=== PATIENT | female | born 1970 | race Caucasian/White ===

== ENCOUNTER → 2016-09-10 | Outpatient (CLI) | payer OTHER ==
[~2016-09-10] MED LIST: CYCLOBENZAPRINE10 M1 PO; LYRICA 100 MG100 MG PO; MELOXICAM15 MG PO; MORPHINE SULFAT30 M3 PO; OXYBUTYNIN5 MG PO; OXYCODONE AND A1 TA5 PO
[2016-09-10 13:21] LABS: HEMOGLOBIN 8.2 g/dL (12.2-16.2); LYMPH # 0.7 K/mm3 (0.7-4.5); LYMPH % 27.8 % (10-50.0)
[2016-09-10 13:44] LABS: BUN 19 mg/dL (7-18)
[2016-09-10 13:59] LABS: GFR (ESTIMATED) 37 ML/MIN (59-)
[2016-09-10 18:20] LABS: NEUTROPHILS 64 % (42-76)
== END ==
LOC: LAB 12:40
PROVIDERS: Obstetrics & Gynecology Gynecologic Oncology
DX: C53.9 Malignant neoplasm of cervix uteri, unspecified (principal); C51.9 Malignant neoplasm of vulva, unspecified

== ENCOUNTER → 2016-10-07 | Outpatient (CLI) | payer OTHER ==
[2016-10-07 15:30] LABS: HEMOGLOBIN 10.6 g/dL (12.2-16.2); LYMPH # 1.1 K/mm3 (0.7-4.5); LYMPH % 11.7 % (10-50.0)
[2016-10-07 16:26] LABS: BUN 15 mg/dL (7-18); GFR (ESTIMATED) 32 ML/MIN (59-)
== END ==
LOC: LAB 15:09
PROVIDERS: Obstetrics & Gynecology Gynecologic Oncology
DX: C53.9 Malignant neoplasm of cervix uteri, unspecified (principal); C51.9 Malignant neoplasm of vulva, unspecified

== ENCOUNTER → 2016-10-14 | Outpatient (CLI) | payer OTHER ==
[2016-10-14 17:57] LABS: HEMOGLOBIN 9.9 g/dL (12.2-16.2); LYMPH # 1.4 K/mm3 (0.7-4.5); LYMPH % 12.7 % (10-50.0)
[2016-10-14 18:33] LABS: BUN 22 mg/dL (7-18)
[2016-10-14 19:03] LABS: GFR (ESTIMATED) 28 ML/MIN (59-)
== END ==
LOC: LAB 17:35
PROVIDERS: Obstetrics & Gynecology Gynecologic Oncology
DX: C53.9 Malignant neoplasm of cervix uteri, unspecified (principal); C51.9 Malignant neoplasm of vulva, unspecified

== ENCOUNTER 2016-11-28 02:04 | Inpatient (IN) | payer OTHER ==
[2016-11-28] VITALS (9 sets, daily range): BP systolic 90–135; BP diastolic 59–88
[~2016-11-28] VITALS: Ht 170.2 cm; Wt 72.6 kg
--- NOTE | 2016-11-28 02:39 | Emergency Room Report ---
History of Present Illness Time Seen by [id number] Presenting Problem in Triage Pt arrived:Wheelchair Presenting Problem:altered mental status, disorietation, fall yesterday am. 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 N Clinical Suspician of Infection? Y Mental Status: 2 - Mildly Altered Sepsis Risk:Possible Sepsis Risk Have you (or family members/close friends) recently traveled outside the [place]? N If Yes, where/when: Have you had exposure to infectious disease within the past month? TB? Other? Specify: Source patient, RN notes reviewed, family, RN/MD Exam Limitations no limitations Comment This is a 46-year-old lady arriving to the emergency room by POV together with her spouse, for evaluation of confusion, subjective fever, body aches, and generalized weakness. She was diagnosed with uterine cancer in January 2016, and she has been receiving oncology treatment at [facility] in [place], by Dr. Delgadillo. advised that she has metastases to her lungs and bones. denies any recent travel or exposure to sick contacts. She has to urostomy tubes, which changing dressing regularly. He has noticed over the past couple of days that the dressing he sustained with a yellowish tint. ALLERGIES Coded Allergies: No Known Allergies (11/28/16) Home Medications Reported Medications OXYCODONE HCL/ACETAMINOPHEN (Oxycodone-Acetaminophen 10-325) 10 MG PO TID PRN PAIN #90 TAB Pregabalin (Lyrica 100Mg) 100 MG PO TID #90 OXYBUTYNIN CHLORIDE (Oxybutynin 5MG Tab) 5 MG PO BID Meloxicam (Meloxicam 15MG) 15 MG PO DAILY #30 Cyclobenzaprine Hcl 10 MG PO NIGHTLY #30 MORPHINE SULFATE SR/ER (Morphine Sulfate ER) 30 MG PO Q12 #60 History Medical History General CAD? No Angina: No [place]: No Hypertension? No Hyperlipidemia? No CHF? No DVT? No PE? No COPD? No Asthma? No Anemia? No GERD? Yes Gastric ulcers? No GI Bleed? No Hernia? No Thyroid Problems? No Hypothyroidism? No CVA? No Seizures? No Diabetes? No Renal Insuffiency? No End Stage Renal Disease? No UTI? No Stones? No BPH? No GB Disease: No Nephritic Syndrome? No Asplenia? No Hepatitis? No Sickle Cell Disease? No Arthritis? Yes Migraines? No Cataracts? No Glaucoma? No MRSA? No HIV? No TB? No Anxiety? No Depression? No Cancer? Yes Site: BONE CANCER;LUNG;CERVIX More? 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 LMP N/A Family History Family Hx Diabetes Yes CAD Yes Hypertension Yes Hyperlipidemia Yes Cancer No TB No Social History Smoking Hx Smoker: Current Every Day Smoker Tobacco: Yes Type Cigarettes Packs/day < 1 Pack Alcohol Alcohol: No Review of Systems All Other Systems Reviewed and Negative Constitutional see HPI, chills, diaphoresis, fever, malaise, weakness Psychiatric/Neurological weakness, other (disoriented) Physical Exam Vital Signs Vital Signs Date Time Temp Pulse Resp B/P Pulse O2 O2 Flow FiO2 Ox Delivery Rate 11/28 0435 76 20 116/95 95 2 11/28 0236 89 11/28 0213 99.7 112 20 117/76 89 General Appearance normal appearance, WD/WN, mild distress, lethargic Eye Exam - bilateral eye normal exam, bilateral eye PERRL, bilateral eye EOMI Neck normal inspection, non-tender, supple, full range of motion Respiratory Status Yes: trachea midline, chest symmetrical, non tender chest. No: respiratory distress. Lung Sounds bilateral: normal breath sounds, lungs clear. 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 No Comment 04:45am-case discussed with Dr. Prince, covering for Dr. Torres, covering for Dr. Crawley, advised of patient's presentation, findings, vital signs, ED course. Dr. Prince agreeable with admission, as well as management so far. Plan is to continue IV hydration, as well as IV antibiotics. We'll also get a noncontrast CT of the abdomen and pelvis. Care transferred to Dr. Prince at this time. I will write bridge temporary admission orders, per hospital protocol. Upon patient's arrival to the floor the unit nurse will contact Dr. Hodges in order to obtain a full inpatient admission orders. Results/Orders Laboratory Tests 11/28/16 0310: Urine Color DARK YELLOW, Urine Appearance Turbid, Urine pH 6.0, Ur Specific [place] 1.025, Urine Protein 2+ H, Urine Ketones NEGATIVE, Urine Blood 3+ H, Urine Nitrate POSITIVE H, Urine Bilirubin NEGATIVE, Urine Urobilinogen 1.0, Ur Leukocyte Esterase 2+ H, Urine Glucose NEGATIVE 11/28/16 0243: ABG pH 7.45, ABG pCO2 (Temp Corrct 37.4, ABG pO2 (Temp Correct 61.3 L, ABG HCO3 25.1, ABG Total CO2 26.3, ABG O2 Sat (Calculated) 90.8, ABG Base Excess 1.0, Viral Test Y, Blood Gas Comments R/R 11/28/16 0230: Lactic Acid 0.9 11/28/16 0230: Sodium 134 L, Potassium 4.2, Chloride 101, Carbon Dioxide 25, BUN 31 H, Creatinine 2.7 H, Estimated Creat Clear 28 L, Estimated GFR (MDRD) 19 *L, Glucose 106, Calcium 8.2 L, Total Bilirubin 0.3, AST 55 H, ALT 19, Alkaline Phosphatase 84, Creatine Kinase 534 H, CK and CKMB Interp 9.0 *H, Troponin I < 0.02, Total Protein 7.2, Albumin 2.8 L, Globulin 4.4 H, Albumin/Globulin Ratio 0.6 L, Amylase 29, Lipase 83, TSH 98.19 H, Free T4 Index 0.4 L, Thyroxine (T4 ) 0.8 L, T3 Uptake 24 L, WBC 6.7, RBC 3.28 L, Hgb 10.1 L, Hct 31.3 L, MCV 95.6, RDW 17.5, Plt Count 149, MPV 6.6 L, Gran % 88.6 H, Gran # 5.9, Total Counted 100, Lymphocytes % 7.3 L, Monocytes % 2.6, Eosinophils % 1.3, Basophils % 0.3, Neutrophils 93 H, Lymphocytes (Manual) 6 L, Lymphocytes # 0.5 L, Monocytes (Manual) 1 L, Monocytes # 0.2, Eosinophils # 0.1, Basophils # 0.0, Platelet Estimate NORMAL, Hypochromasia 1+, Anisocytosis 1+, PUBS MCHC 32.2, MCH 30.8 11/28/16 0210: Amylase Cancelled, Lipase Cancelled, TSH Cancelled, Free T4 Index Cancelled, Thyroxine (T4) Cancelled, T3 Uptake Cancelled Current Medication Orders Sig/Faith Start time Last Medication Dose Route Stop Time Status Admin Sodium Chloride 1,000 ML .Q1H1M 11/28 0445 DC 11/28 IV 11/28 0545 0445 Sodium Chloride 10 ML PRN PRN 11/28 0445 AC IV 11/29 0432 Sodium Chloride 1,000 ML .STK-MED ONE 11/28 0442 DC IV Ceftriaxone Sodium 1 GM ONCE ONE 11/28 0330 DC 11/28 Sodium Chloride 50 ML IV 11/28 0359 0330 Sodium Chloride 1,000 ML .Q1H1M 11/28 0330 DC / IV 11/28 0430 0329 Sodium Chloride 10 ML PRN PRN 11/28 0330 AC IV 11/29 0324 Ceftriaxone Sodium 0 .STK-MED ONE 11/28 0326 DC IV Sodium Chloride 50 ML .STK-MED ONE 11/28 0326 DC IV Sodium Chloride 1,000 ML .STK-MED ONE 11/28 0325 DC IV Sodium Chloride 10 ML PRN PRN 11/28 0215 AC IV 11/29 0209 Orders Procedure Date/time Status Decision to admit 11/28 0303 Active DIFFERENTIAL-WBC 11/28 0230 Complete ARTERIAL BLOOD GAS REQUEST 11/[address] HEAD REQ 11/28 220 Active ELECTROCARDIOGRAM REQUEST 11/28 210 Active CULTURE, URINE 11/28 210 Active URINALYSIS/COMPLETE 11/28 210 Complete ELECTROCARDIOGRAM REQUEST 11/28 209 Active IV SALINE LOCK 11/28 209 Active OXYGEN PER NURSE 11/28 209 Active ROUNDSMAN 05/08 0210 Active TROPONIN I 11/28 209 Complete THYROID PANEL 2 (WITH TSH) 11/28 209 Complete LIPASE 11/28 209 Complete CPK 11/28 209 Complete COMPLETE METABOLIC PANEL 11/28 209 Complete CKMB 11/28 209 Complete CBC WITH AUTO DIFF 11/28 209 Complete AMYLASE 11/28 209 Complete CULTURE, BLOOD 11/28 0209 Active LACTIC ACID 11/28 020 Complete 12 LEAD EKG-ADRYL (INITIAL) 11/28 UNK Active XRAY/CT/US XRAY/CT/US CT head CT interpretation by reviewed by me (noncontrast), discussed w/radiologist CT Results see virtual radiology report Departure Departure Time of Disposition 0443 Disposition Still a Patient Clinical Impression Primary Impression: Change in mental status Qualifiers: Altered mental status type: unspecified Qualified Code: R41.82 - Altered mental status, unspecified Secondary Impressions: Acute on chronic renal failure Qualifiers: Acute renal failure type: unspecified Chronic kidney disease stage: unspecified stage Qualified Code: N17.9 - Acute kidney failure, unspecified Metastatic cancer Urinary tract infection Qualifiers: Urinary tract infection type: acute cystitis Hematuria presence: without hematuria Qualified Code: N30.00 - Acute cystitis without hematuria Uterine cancer Qualifiers: Malignant neoplasm of uterus location: unspecified site of uterus Qualified Code: C55 - Malignant neoplasm of uterus, part unspecified Condition STABLE ED Critical Care Critical Care Yes Time spent 30-74 min Vital system(s) involved: Central Nervous System I was present at bedside for Coordinating pt's care, During my initial exam, Reviewing lab results, Reviewing old records, Discussing pt condition, For re- examinations, Examining radiographs If Critical Care minutes are documented, the time involved in the performance of seperately reportable procedures was not counted toward critical care time documented. I directly delivered medical care to this critically ill and/or injured patient. Timely evaluation and treatment was necessary to address the significant organ system(s) dysfunction present in this patient. at 0514
[2016-11-28 02:44] LABS: HEMOGLOBIN 10.1 g/dL (12.2-16.2); LYMPH # 0.5 K/mm3 (0.7-4.5); LYMPH % 7.3 % (10-50.0)
[2016-11-28 02:44] LABS: ARTERIAL PO2 61.3 MMHG (80-100); ARTERIAL TCO2 26.3 MMOL/L (23-27)
[2016-11-28 02:45] LABS: ALLEN'S TEST Y; OXYGEN R/A
[2016-11-28 03:16] LABS: BUN 31 mg/dL (7-18); FREE THYROXIN INDEX 0.4 ug/dl (5.93-13.13)
[2016-11-28 03:21] LABS: GFR (ESTIMATED) 19 ML/MIN (59-)
[2016-11-28 03:31] LABS: URINE BILIRUBIN - DIPSTICK NEGATIVE (NEG); URINE BLOOD 3+ (NEG)
[2016-11-28 03:44] LABS: NEUTROPHILS 93 % (42-76)
--- OUTSIDE RECORDS SUMMARY | 2016-11-28 04:52 | External Medical Summary Rpt ---
Author Author [employer], [employer] Organization [employer] Address Unknown Phone Unavailable
--- OUTSIDE RECORDS SUMMARY | 2016-11-28 04:52 | External Medical Summary Rpt ---
Author Author , Organization [employer] Address Unknown Phone Unavailable Purpose Continuity of Care Document - through 2016
--- OUTSIDE RECORDS SUMMARY | 2016-11-28 04:52 | External Medical Summary Rpt ---
Author Author [employer] Organization [employer] Address Unknown Phone Unavailable Purpose Continuity of Care Document - through 2016
--- NOTE | 2016-11-28 05:14 | RADIOLOGY REPORT PS360 ---
CHEST-PORTABLE HISTORY: Fever, pain, history of lung cancer fever, pain ORDERING PHYSICIAN: Piter Kaplan MD PATIENT AGE: 46 years COMPARISON: None available FINDINGS: There are low lung volumes. The cardiac vascular structures are unremarkable. There is an 18 x 11 mm nodular opacity in the left midlung indeterminate. Increased markings are present in the right lower lung zone suspicious for underlying infiltrate. There is a mottled area of decreased density involving the proximal humerus laterally at the region of the greater tuberosity possibly due to a lytic lesion. IMPRESSION: 1. Left midlung nodule atelectatic 18 x [address] 2. Patchy infiltrate in the right lower lobe. 3. Lytic lesion of the proximal humerus on the right. Recommend right shoulder films
--- NOTE | 2016-11-28 05:16 | RADIOLOGY REPORT PS360 ---
CT HEAD W/O CONTRAST HISTORY: Altered mental status, metastatic cervical cancer to the lung and bone, confusion, disorientation AMS ORDERING PHYSICIAN: Piter Kaplan MD PATIENT AGE: 46 years COMPARISON: None TECHNIQUE: Axial images obtained without contrast. Brain and bone windows reviewed. FINDINGS: No midline shift, mass effect, intracranial hemorrhage, hydrocephalus, or extra-axial fluid collection is evident. The calvarium has an unremarkable appearance. No mastoid effusion. Mild mucosal thickening left maxillary sinus IMPRESSION: Negative CT head without contrast. No acute finding.
--- NOTE | 2016-11-28 07:46 | HISTORY AND PHYSICAL REPORT ---
Demographics: Admit date: 11/28/16 Chief complaint: Weakness PRIMARY DIAGNOSIS: pneumonia/UTI Allergies: Coded Allergies: No Known Allergies (11/28/16) History of present illness: History of present illness: 46-year-old female with metastatic uterine cancer presented to the emergency department early this morning after being weak and sleeping most of the day. Her felt like she just wasn't acting like herself and brought her to the emergency department. In the emergency department the patient was found to have urinary tract infection and chest x-ray has also shown right-sided pneumonia. Patient admits to fairly new onset of cough with intermittent episodes of shortness of breath. She assumed she just had a cold. She denies fevers or chills. Patient has bilateral urostomy tubes. Her creatinine was elevated on presentation but we do not have recent labs for comparison. Patient was admitted on Rocephin and azithromycin. As stated above she has metastatic uterine cancer with metastases to the lungs and bone. Patient is undergone both chemotherapy and radiation. Past medical history: Family HX Family Hx Insignificant No Diabetes Yes CAD Yes Hypertension Yes Hyperlipidemia Yes Cancer No TB No Immunization HX DT/Tetanus Unknown Pneumonia Refuses TB Test in last year No General CAD? No Angina: No [place]: No Hypertension? No Hyperlipidemia? No CHF? No DVT? No PE? No COPD? No Asthma? No Anemia? No GERD? Yes Gastric ulcers? No GI Bleed? No Hernia? No Thyroid Problems? No Hypothyroidism? No CVA? No Seizures? No Diabetes? No Renal Insuffiency? No UTI? No Stones? No BPH? No GB Disease: No Nephritic Syndrome? No Asplenia? No Hepatitis? No Sickle Cell Disease? No Arthritis? Yes Migraines? No Cataracts? No Glaucoma? No MRSA? No HIV? No TB? No Anxiety? No Depression? No Cancer? Yes Site: BONE CANCER;LUNG;CERVIX More? Yes Additional hx: SPINA BIFIDA RADIATION FOR BONE CANCER CHEMO Past Surgical HX Previous Surgery?Y BACK X2 D & C C SECTION TUBAL SKIN CANCER OVARY CYST KIDNEY STENTS NEPHROSTOMY Current home meds: Reported Medications OXYCODONE HCL/ACETAMINOPHEN (Oxycodone-Acetaminophen 10-325) 10 MG PO TID PRN PAIN #90 TAB Pregabalin (Lyrica 100Mg) 100 MG PO TID #90 OXYBUTYNIN CHLORIDE (Oxybutynin 5MG Tab) 5 MG PO BID Meloxicam (Meloxicam 15MG) 15 MG PO DAILY #30 Cyclobenzaprine Hcl 10 MG PO NIGHTLY #30 MORPHINE SULFATE SR/ER (Morphine Sulfate ER) 30 MG PO Q12 #60 Social Hx: Smoking HX Tobacco Yes Type Cigarettes Packs/day 1 1/2 - 2 PACKS Alcohol Alcohol: No Hx of Drug Use Drug Use? No Patien't marital status is Patient's support system is fair Review of systems: Constitutional weakness. Respiratory see HPI. Cardiovascular no symptoms reported Gastrointestinal/Abdominal nausea, poor appetite Genitourinary no symptoms reported. Musculoskeletal other. Neurological Yes: weakness. Exam: Lab data for last 24 hours: Laboratory Tests 11/28/16 0310: Urine Color DARK YELLOW, Urine Appearance Turbid, Urine pH 6.0, Ur Specific [place] 1.025, Urine Protein 2+ H, Urine Ketones NEGATIVE, Urine Blood 3+ H, Urine Nitrate POSITIVE H, Urine Bilirubin NEGATIVE, Urine Urobilinogen 1.0, Ur Leukocyte Esterase 2+ H, Urine Glucose NEGATIVE 11/28/16 0243: ABG pH 7.45, ABG pCO2 (Temp Corrct 37.4, ABG pO2 (Temp Correct 61.3 L, ABG HCO3 25.1, ABG Total CO2 26.3, ABG O2 Sat (Calculated) 90.8, ABG Base Excess 1.0, Viral Test Y, Blood Gas Comments R/R 11/28/16 0230: Lactic Acid 0.9 11/28/16 0230: Sodium 134 L, Potassium 4.2, Chloride 101, Carbon Dioxide 25, BUN 31 H, Creatinine 2.7 H, Estimated Creat Clear 28 L, Estimated GFR (MDRD) 19 *L, Glucose 106, Calcium 8.2 L, Total Bilirubin 0.3, AST 55 H, ALT 19, Alkaline Phosphatase 84, Creatine Kinase 534 H, CK and CKMB Interp 9.0 *H, Troponin I < 0.02, Total Protein 7.2, Albumin 2.8 L, Globulin 4.4 H, Albumin/Globulin Ratio 0.6 L, Amylase 29, Lipase 83, TSH 98.19 H, Free T4 Index 0.4 L, Thyroxine (T4 ) 0.8 L, T3 Uptake 24 L, WBC 6.7, RBC 3.28 L, Hgb 10.1 L, Hct 31.3 L, MCV 95.6, RDW 17.5, Plt Count 149, MPV 6.6 L, Gran % 88.6 H, Gran # 5.9, Total Counted 100, Lymphocytes % 7.3 L, Monocytes % 2.6, Eosinophils % 1.3, Basophils % 0.3, Neutrophils 93 H, Lymphocytes (Manual) 6 L, Lymphocytes # 0.5 L, Monocytes (Manual) 1 L, Monocytes # 0.2, Eosinophils # 0.1, Basophils # 0.0, Platelet Estimate NORMAL, Hypochromasia 1+, Anisocytosis 1+, PUBS MCHC 32.2, MCH 30.8 Microbiology 11/28 309 URINE CATH: Urine Culture - CAN Cancelled: DUPLICATE ORDER 11/28 309 URINE CC: Urine Culture - RECD 11/28 229 BLOOD: Anaerobic Blood Culture - RECD 11/28 229 BLOOD: Aerobic Blood Culture - RECD 11/28 229 BLOOD: Anaerobic Blood Culture - RECD 11/28 229 BLOOD: Aerobic Blood Culture - RECD Admission vital signs: 1ST Vital Signs Result Date Time Pulse Ox 89 11/28 212 B/P 117/76 11/283 Temp 99.7 11/283 Pulse 112 11/28 0213 Resp 20 11/28 212 O2 Flow Rate 2 11/28 0435 O2 Delivery ROOM AIR 11/28 0518 Additional information: Patient is awake and sitting up in a chair. She appears weak. Pupils are reactive to light. Oropharynx reveals tacky mucous membranes. Neck is without lymphadenopathy. Lungs have bilateral rhonchi LEFT greater than RIGHT. Heart has a regular rate and rhythm. Abdomen is soft. Nephrostomy tubes are in place posteriorly in the back. Extremities are warm to the touch and she moves all her extremities. Neurologically there are no deficits. Plan: Problem List 1. Urinary tract infection 2. Acute on chronic renal failure 3. Change in mental status 4. Hypothyroidism 5. Community acquired pneumonia Plan: 1. Rocephin and azithromycin for pneumonia and Rocephin to cover her urinary tract infection 2. IV fluids and follow BUN/creatinine and electrolytes 3. Start levothyroxine
--- NOTE | 2016-11-28 09:41 | RADIOLOGY REPORT PS360 ---
CT ABD PELVIS W/O CONTRAST CLINICAL INDICATION: FEVER,B/L NEPHROSTOMIES, ovarian cancer ORDERING PHYSICIAN: Vick Torres MD PATIENT AGE: 46 years COMPARISON: 08/20/2016 TECHNIQUE: Axial images obtained with sagittal and coronal reformats. PROCEDURE: Oral Contrast: None IV Contrast: None . FINDINGS: There is groundglass opacity in both lower lobes which could be due to pulmonary edema or pneumonitis. An ill-defined 9 mm nodules present in the right lung base not significantly changed. There are some central parenchymal opacities in the right lung base medially and may be related to peribronchial inflammatory/infectious changes. Gas is present in the distal esophagus with mild thickening of the distal esophagus nonspecific. The liver has an unremarkable appearance. Gallbladder is somewhat distended. No radio opaque stones are evident. Spleen is enlarged at 16 cm. The adrenal glands and pancreas are unremarkable. There are bilateral percutaneous nephrostomy tubes present. A small amount of gas is present within the left renal collecting system. Calcification is present in the mid and upper pole collecting system of the right kidney and may be due to developing staghorn calculi. No hydronephrosis evident. There is diffuse moderate amount of feces and gas in the colon most prominent in the ascending and transverse colon with mild distention of the colon measuring up to 8 cm in transverse dimension. There is some mild thickening of the descending and sigmoid colon. Colitis is considered. No obvious abscess or free air. Is mild thickening of the presacral fat and stranding of the perirectal fat. This was present previously and not significant change. There is decompression of the urinary bladder with thickening of the urinary bladder wall. Small amount fluid is present in the pelvis. No change 1 cm anterolisthesis of L3 on L4. A lytic lesion is once again noted involving the posterior infra aspect of the L2 vertebral body similar to the previous exam. There is an old fracture of the right eighth rib anteriorly and laterally IMPRESSION: 1. There has been insertion of bilateral nephrostomy tubes with decompression of the renal collecting system. Calcification is developing in the right kidney and may be due to developing staghorn calculus. Small amount of gas is present in the left kidney possibly due to the tube insertion. 2. Decompression of the urinary bladder with thickening of the wall urinary bladder. 3. Persistent thickening of the descending and sigmoid colon and rectum consistent with colitis/proctocolitis with persistent stranding of the perirectal and presacral fat. 4. Constipation 5. No change lytic lesion of L2
[2016-11-28] MEDS ORDERED: CITALOPRAM HYDR10 MG PO (13:32)
[2016-11-28] MEDS ORDERED: DITROPAN 5MG TAB5 MG PO (13:34)
[2016-11-29 03:32] VITALS: BP 132/78
--- NOTE | 2016-11-29 07:08 | ACUTE CARE PROGRESS NOTE (QUA) ---
Progress Notes Subjective Date 11/29/16 Time 0705 Note Patient has no complaints this morning. She slept in her chair overnight. She has a hospital bed at home that she usually sleeps in but she is just been falling asleep in the chair since admission. She looks weak. Lungs have bilateral rales and rhonchi. Heart has regular rate and rhythm. Objective Findings Last VS-Temp:97.9 B/P:132/78 Pulse:101 Resp:22 SaO2:95 OXYGEN Last weight lbs:154 oz:4 K.967 Method:Bed Scales Assessment/Plan Problem List 1. Community acquired pneumonia 2. Urinary tract infection Qualifiers: Urinary tract infection type: acute cystitis Hematuria presence: without hematuria Qualified Code: N30.00 - Acute cystitis without hematuria 3. Change in mental status Qualifiers: Altered mental status type: unspecified Qualified Code: R41.82 - Altered mental status, unspecified 4. Hypothyroidism 5. Primary cervical cancer with metastasis to other site 6. Chronic kidney disease Assessment/Plan: Baseline creatinine 2.3 Patient condition Stable Plan: continue current care This inpt stay is expected to cross 2 MNs from start of care Yes
[2016-11-29 07:35] VITALS: BP 135/84
[2016-11-29 08:28] VITALS: BP 135/84
[2016-11-29 16:00] VITALS: BP 124/71
[2016-11-29 19:33] VITALS: BP 94/48
[2016-11-29 21:19] VITALS: BP 94/48
[2016-11-30 00:10] VITALS: BP 115/70
[2016-11-30 03:32] VITALS: BP 101/61
[2016-11-30 06:33] LABS: LYMPH # 0.6 K/mm3 (0.7-4.5); LYMPH % 13.2 % (10-50.0)
--- NOTE | 2016-11-30 07:22 | ACUTE CARE PROGRESS NOTE (QUA) ---
Progress Notes Subjective Date 11/30/16 Time 0720 Note Patient has no complaints. She denies shortness of breath. Cough is producing only minor amounts of sputum. She looks more alert this morning. Lungs have diffuse expiratory wheezes but rales have clear. Heart has regular rate and rhythm. Extremities have 2+ edema. Await cultures. Start duo nebs and steroids for her bronchospasm Objective Findings Last VS-Temp:98.4 B/P:101/61 Pulse:98 Resp:20 SaO2:99 OXYGEN Last weight lbs:154 oz:4 K.967 Method:Bed Scales Assessment/Plan Problem List 1. Community acquired pneumonia 2. Urinary tract infection Qualifiers: Urinary tract infection type: acute cystitis Hematuria presence: without hematuria Qualified Code: N30.00 - Acute cystitis without hematuria 3. Change in mental status Qualifiers: Altered mental status type: unspecified Qualified Code: R41.82 - Altered mental status, unspecified 4. Hypothyroidism 5. Primary cervical cancer with metastasis to other site 6. Chronic kidney disease Patient condition Improving Plan: continue current care This inpt stay is expected to cross 2 MNs from start of care Yes Antibiotic Stewardship (2) Current Culture Results Microbiology 11/28 309 URINE CATH: Urine Culture - CAN Cancelled: DUPLICATE ORDER 11/28 309 URINE CC: Urine Culture - RES 11/28 229 BLOOD: Anaerobic Blood Culture - RECD 11/28 229 BLOOD: Aerobic Blood Culture - RECD Infxn that will respond? Yes More targeted antbx? Yes How long atbx needed? 7 at 0743
[2016-11-30 08:32] VITALS: BP 121/75
[2016-11-30 11:45] VITALS: BP 95/49
[2016-11-30 16:00] VITALS: BP 107/67
[2016-11-30 19:55] VITALS: BP 114/62
[2016-12-01] VITALS (9 sets, daily range): BP systolic 104–134; BP diastolic 67–85
--- NOTE | 2016-12-01 07:30 | ACUTE CARE PROGRESS NOTE (QUA) ---
Progress Notes Subjective Date 12/01/16 Time 0726 Note Patient is without complaints this morning. She states she's starting to feel better. She ambulated yesterday and has spent significant time without any supplemental oxygen. Overnight however her O2 sats did drop into the high 80s. Her cough remains mostly nonproductive. Urine is beginning to clear. She looks like she is feeling better. Lung exam reveals persistent rales in the RIGHT base with expiratory wheezes heard in the upper lobes both anteriorly and posteriorly. Heart has a regular rate and rhythm. Urine culture is growing an enterococcus that is sensitive to Rocephin. Repeat chest x-ray today. Decrease IV steroids. Continue Rocephin and azithromycin. Out of bed as tolerated. Oxygen as needed. Objective Findings Last VS-Temp:98.0 B/P:119/70 Pulse:95 Resp:20 SaO2:92 ROOM AIR Last weight lbs:153 oz:4 K.513 Method:Bed Scales Microbiology 12/01 421 SPUTUM: Sputum Culture - RECD 12/01 421 SPUTUM: Gram Stain - RECD Assessment/Plan Problem List 1. Community acquired pneumonia 2. Urinary tract infection Qualifiers: Urinary tract infection type: acute cystitis Hematuria presence: without hematuria Qualified Code: N30.00 - Acute cystitis without hematuria 3. Change in mental status Qualifiers: Altered mental status type: unspecified Qualified Code: R41.82 - Altered mental status, unspecified 4. Hypothyroidism 5. Primary cervical cancer with metastasis to other site 6. Chronic kidney disease Patient condition Improving Plan: continue current care, repeat x-ray This inpt stay is expected to cross 2 MNs from start of care Yes Antibiotic Stewardship (2) Infxn that will respond? Yes More targeted antbx? Yes at 0737
--- NOTE | 2016-12-01 09:49 | RADIOLOGY REPORT PS360 ---
CHEST(2 VIEWS-NOT PORTABLE) HISTORY: Follow-up pneumonia pneumonia progress film ORDERING PHYSICIAN: Vick Torres MD PATIENT AGE: 46 years COMPARISON: 11/28/2016 FINDINGS: The cardiomediastinal silhouette and pulmonary vascularity are within normal limits. There is diffuse bilateral alveolar opacification which has progressed compared to the previous exam. No obvious effusion Lytic lesion once again noted involving the right humerus unchanged. IMPRESSION: Diffuse bilateral airspace disease consistent with bilateral pneumonia which is worse on today's exam
[2016-12-02] VITALS (8 sets, daily range): BP systolic 104–135; BP diastolic 50–92
--- NOTE | 2016-12-02 07:22 | ACUTE CARE PROGRESS NOTE (QUA) ---
Progress Notes Subjective Date 12/02/16 Time 0716 Note Patient tells me that yesterday evening she felt rather rundown and tired. She had loss of appetite during this time. Her morning and started out well. She did develop some nausea after breakfast. She continues to have cough with very little sputum production. Nursing notes report urine has cleared. She does not look ill. Lung exam reveals bilateral expiratory rhonchi and wheezes. Heart has a regular rate and rhythm. Extremities remain swollen. Chest x-ray from yesterday was interpreted as a worsening bibasilar airspace disease Clinically the patient has improved. She is weaned off oxygen. She is more alert. Incentive spirometry was added yesterday and the patient can inhale 1 L this morning. Encouraged continued use of some incentive spirometry. DC Rocephin and start Invanz in addition to azithromycin. Invanz will cover both her UTI and will allow for broader coverage of her pneumonia. I may repeat her x-ray tomorrow. Encouraged her to be active within her room. DC IV fluids. Check complete blood count this morning Objective Findings Last VS-Temp:98.0 B/P:124/79 Pulse:103 Resp:20 SaO2:92 ROOM AIR Last weight lbs:153 oz:3 K.485 Method:Bed Scales Assessment/Plan Problem List 1. Community acquired pneumonia 2. Urinary tract infection Qualifiers: Urinary tract infection type: acute cystitis Hematuria presence: without hematuria Qualified Code: N30.00 - Acute cystitis without hematuria 3. Change in mental status Qualifiers: Altered mental status type: unspecified Qualified Code: R41.82 - Altered mental status, unspecified 4. Hypothyroidism 5. Primary cervical cancer with metastasis to other site 6. Chronic kidney disease Patient condition Stable Plan: continue current care This inpt stay is expected to cross 2 MNs from start of care Yes Antibiotic Stewardship (2) Infxn that will respond? Yes More targeted antbx? Yes
[2016-12-02 08:29] LABS: HEMOGLOBIN 9.3 g/dL (12.2-16.2); LYMPH # 0.4 K/mm3 (0.7-4.5); LYMPH % 4.2 % (10-50.0)
[2016-12-02 10:18] LABS: NEUTROPHILS 87 % (42-76)
[2016-12-03] VITALS (8 sets, daily range): BP systolic 114–137; BP diastolic 73–87
--- NOTE | 2016-12-03 07:51 | ACUTE CARE PROGRESS NOTE (QUA) ---
Progress Notes Subjective Date 12/03/16 Time 0749 Note Patient reports feeling a little better this morning. Her cough is beginning to loosen and become more productive. Sputum is a grayish green color and is rather thick. Appetite is improving. O2 sats remained in the low 90s on room air. Patient is awake and alert. Lungs have diffuse expiratory rhonchi mixed with some wheezing. Heart has a regular rate and rhythm. Abdomen is soft. Extremities have 2+ edema. Repeat chest x-ray today. I discussed the possibility of transfer with the patient should her x-ray show progressing pneumonia. Now that she has been able to produce some sputum we may be able to get a better idea of the cause of her pneumonia. Continue Invanz and azithromycin for both her pneumonia and her urinary tract infection with enterococcus Objective Findings Last VS-Temp:98.4 B/P:114/78 Pulse:96 Resp:22 SaO2:90 ROOM AIR Last weight lbs:158 oz:0 K.668 Method:Floor Scales Laboratory Tests 12/02/16 0815: WBC 8.5, RBC 3.04 L, Hgb 9.3 L, Hct 29.7 L, MCV 97.8, RDW 17.2, Plt Count 88 L, MPV 6.7 L, Gran % 92.7 H, Gran # 7.8, Total Counted 100, Lymphocytes % 4.2 L, Monocytes % 2.5, Eosinophils % 0.2, Basophils % 0.3, Neutrophils 87 H, Band Neutrophils 3, Lymphocytes (Manual) 9 L, Lymphocytes # 0.4 L, Monocytes ( Manual) 1 L, Monocytes # 0.2, Eosinophils # 0.0, Basophils # 0.0, Platelet Estimate MARKED DECREASE, Anisocytosis 1+, Macrocytosis 1+, PUBS MCHC 31.2 L, MCH 30.5 Assessment/Plan Problem List 1. Community acquired pneumonia 2. Urinary tract infection Qualifiers: Urinary tract infection type: acute cystitis Hematuria presence: without hematuria Qualified Code: N30.00 - Acute cystitis without hematuria 3. Change in mental status Qualifiers: Altered mental status type: unspecified Qualified Code: R41.82 - Altered mental status, unspecified 4. Hypothyroidism 5. Primary cervical cancer with metastasis to other site 6. Chronic kidney disease Patient condition Stable Plan: continue current care This inpt stay is expected to cross 2 MNs from start of care Yes Antibiotic Stewardship (2) Infxn that will respond? Yes More targeted antbx? Yes at 0752
--- NOTE | 2016-12-03 10:54 | RADIOLOGY REPORT PS360 ---
CHEST(2 VIEWS-NOT PORTABLE) COMPARISON: PA and lateral chest 12/01/2016 HISTORY: Follow-up pneumonia TECHNIQUE: PA and lateral chest FINDINGS: The lung pedro are fairly well-expanded. Diffuse bilateral patchy alveolar pneumonic infiltrates are seen in both perihilar regions and lower lobes more prominent right side than left. There is been partial clearing of infiltrate in the superior segment of the right lower lobe when compared to the previous study . Also there may been slight interval improvement in the left base. IMPRESSION: Slight interval improvement in diffuse bilateral pneumonic infiltrates
[2016-12-04] VITALS (7 sets, daily range): BP systolic 116–143; BP diastolic 81–89
--- NOTE | 2016-12-04 07:26 | ACUTE CARE PROGRESS NOTE (QUA) ---
Progress Notes Subjective Date 12/04/16 Time 0724 Note Patient is sitting up in the chair, apparently she does not wish to sleep in the bariatric bed. She states that she is feeling a little better. Lungs continue to have some dense crackles and rhonchi in both lung pedro, but symmetric air entry is noted and no use of accessory muscles. She is alert, oriented and talkative. Wearing compression stockings. Heart rate regular. Abdomen is soft. Objective Findings Last VS-Temp:97.7 B/P:131/82 Pulse:86 Resp:20 SaO2:94 ROOM AIR Last weight lbs:159 oz:0 K.121 Method:Floor Scales Assessment/Plan Problem List 1. Community acquired pneumonia 2. Urinary tract infection Qualifiers: Urinary tract infection type: acute cystitis Hematuria presence: without hematuria Qualified Code: N30.00 - Acute cystitis without hematuria 3. Change in mental status Qualifiers: Altered mental status type: unspecified Qualified Code: R41.82 - Altered mental status, unspecified 4. Hypothyroidism 5. Primary cervical cancer with metastasis to other site 6. Chronic kidney disease Patient condition Improving Plan: continue current care, review of chest x-ray from yesterday shows improvement in infiltrates. She overall looks a little better. I agree with current treatment plan. Check labs tomorrow to assess renal function and blood counts This inpt stay is expected to cross 2 MNs from start of care Yes Antibiotic Stewardship (2) Infxn that will respond? Yes More targeted antbx? Yes at 0711
[2016-12-05] VITALS (7 sets, daily range): BP systolic 107–133; BP diastolic 73–91
[2016-12-05 06:57] LABS: HEMOGLOBIN 9.1 g/dL (12.2-16.2); LYMPH # 0.5 K/mm3 (0.7-4.5); LYMPH % 10.2 % (10-50.0)
--- NOTE | 2016-12-05 07:15 | ACUTE CARE PROGRESS NOTE (QUA) ---
Progress Notes Subjective Date 12/05/16 Time 0714 Note Patient has no complaints. She states she feels no better but feels no worse. Her cough is no longer productive. Patient does not appear ill and actually looks better. Lung exam reveals rhonchi best heard posteriorly and bilaterally. No expiratory wheezes. Heart has a regular rate and rhythm. Extremities remain swollen. CT scan of the chest today. We will see if Mucomyst can help with her chest congestion. Pulmonology consult tomorrow. Objective Findings Last VS-Temp:97.5 B/P:133/91 Pulse:88 Resp:22 SaO2:94 ROOM AIR Last weight lbs:159 oz:0 K.121 Method:Floor Scales Laboratory Tests 12/05/16 0630: WBC 5.2, RBC 2.99 L, Hgb 9.1 L, Hct 29.0 L, MCV 96.8, RDW 17.0, Plt Count 133 L, MPV 6.4 L, Gran % 83.7 H, Gran # 4.4, Lymphocytes % 10.2, Monocytes % 5.5, Eosinophils % 0.2, Basophils % 0.4, Lymphocytes # 0.5 L, Monocytes # 0.3, Eosinophils # 0.0, Basophils # 0.0, PUBS MCHC 31.6 L, MCH 30.6 Assessment/Plan Problem List 1. Community acquired pneumonia 2. Urinary tract infection Qualifiers: Urinary tract infection type: acute cystitis Hematuria presence: without hematuria Qualified Code: N30.00 - Acute cystitis without hematuria 3. Change in mental status Qualifiers: Altered mental status type: unspecified Qualified Code: R41.82 - Altered mental status, unspecified 4. Hypothyroidism 5. Primary cervical cancer with metastasis to other site 6. Chronic kidney disease Patient condition Stable Plan: continue current care This inpt stay is expected to cross 2 MNs from start of care Yes Antibiotic Stewardship (2) Infxn that will respond? Yes More targeted antbx? Yes at 0715
--- NOTE | 2016-12-05 11:21 | RADIOLOGY REPORT PS360 ---
CT CHEST W/O CONTRAST Ordering Physician: Vick Torres MD Patient Age: 46 years: Female HISTORY: PNEUMONIA,METASTATIC CERVICAL CANCER TECHNIQUE: Helical CT scanning performed the chest no IV contrast. COMPARISON. 12/03/2016 & 12/01/2016 PA and lateral chest. FINDINGS Diffuse, fairly extensive patchy alveolar and patchy hazy groundglass infiltrates bilaterally. These in infiltrate seen to be more evident centrally and towards anterior lungs bilaterally more interstitial component central. Infiltrates more pronounced throughout the right lung and left kidney here at the right infrahilar region right base as well as right middle lobe. In these latter areas are is a somewhat nodular character to the infiltrate in some areas. No associated pleural effusion mild airway thickening towards lower lobes. Borderline airway dilatation towards lower lobes. Bilateral bronchiectatic changes also at RML and lingula; possibly related to pneumonia. Mediastinum. A no significant mediastinal adenopathy or mass. No hilar adenopathy. Scattered small calcified nodes at left fay reflecting old granulomatous disease. Scattered small calcified granulomas at lung pedro bilaterally. . Heart appears upper normal size with small pericardial effusion. Minimal coronary artery calcification, LAD. --- There is a I believe healing rib fracture involving the anterolateral right eighth rib as well as the posterior left seventh rib. Large erosive lesion at the lateral aspect of humeral head with mildly sclerotic margin. This measures up to 2.3 cm diameter and is over 1 cm depth partial sclerotic margin isn't there is attempted healing. This would be suspect for a metastatic lesion consider bone scan Sclerotic lesion most suggestive of a healing fracture at the superior left aspect of the manubrium cannot exclude underlying lesion here. T-spine appears satisfactory. Lower sternum unremarkable Uppermost abdomen. Spleen appears mildly enlarged with portal venous collaterals suspect on this nonenhanced scan. Other Abnormal liver function test?? The liver containing appears slightly generous in size. Large amount stool is seen right and transverse colon reflecting constipation. A Right nephrostomy tube enters from the right back numerous scattered calculi at right kidney. Kidneys are only partially imaged.. Left nephrostomy tube is seen only on the information consultant view IMPRESSION 1. Diffuse Bilateral pneumonia right lung greater than left. Overall suggestion incrementally improved since December 03, 2016 CXR Diffuse patchy infiltrates bilaterally most pronounced central,/ perihilar regions, right greater than left. With infiltrate extending anteriorly demonstrating slight more nodular character, particularly at RML & lingula . No pleural effusion. No pneumothorax. 2.. Various Osseous findings ; Consider bone scan to further evaluate w given history. ... Suspect metastatic Lesion proximal humerus, lateral aspect greater tuberosity.. ...Bilateral healing rib fractures. Suspect relatively recent versus remote. Fractures involve anterior lateral right eighth rib, posterior left seventh rib, anterior left third rib. ... Also Sclerotic irregular appearance at left manubrium. CT Suggesting a healing fracture here? Difficult to exclude underlying lesion. 4. At upper abdomen incidental note: Splenomegaly with lportal venous collaterals. Bilateral nephrostomy tubes constipation.
[2016-12-06 04:00] VITALS: BP 143/95
--- NOTE | 2016-12-06 07:14 | ACUTE CARE PROGRESS NOTE (QUA) ---
Progress Notes Subjective Date 12/06/16 Time 0711 Note Patient has no complaints this morning. She ambulated up the length of the hallway yesterday. She took her own shower. She spent time with her family. Ambulating and taking her shower did leave her little breathless but she was able to complete both. She still admits to some shortness of breath. Patient looks improved. Her color is better. Lung exam still has bilateral rhonchi and wheezes. Heart has a regular rate and rhythm. Extremities have 2+ edema. CT scan yesterday showed continued slow improvement in her pneumonia. Old rib fractures. Metastatic disease of the LEFT humerus. Patient is improving. Neurology consult as been ordered for today. If no major changes recommended by pulmonology I anticipate discharging her to home later today on an inhaled corticosteroid and long-acting beta agonist. She has completed a course of antibiotics for her pneumonia and urinary tract infection. Objective Findings Last VS-Temp:98.3 B/P:143/95 Pulse:87 Resp:18 SaO2:94 ROOM AIR Last weight lbs:160 oz:0 K.575 Method:Floor Scales Assessment/Plan Problem List 1. Community acquired pneumonia 2. Urinary tract infection Qualifiers: Urinary tract infection type: acute cystitis Hematuria presence: without hematuria Qualified Code: N30.00 - Acute cystitis without hematuria 3. Change in mental status Qualifiers: Altered mental status type: unspecified Qualified Code: R41.82 - Altered mental status, unspecified 4. Hypothyroidism 5. Primary cervical cancer with metastasis to other site 6. Chronic kidney disease Patient condition Improving Plan: consult pulmonology This inpt stay is expected to cross 2 MNs from start of care Yes Antibiotic Stewardship (2) Infxn that will respond? Yes More targeted antbx? Yes at 0713
[2016-12-06 07:32] VITALS: BP 138/98
[2016-12-06 08:37] VITALS: BP 138/98
--- NOTE | 2016-12-06 10:21 | CONSULT NOTE ---
Standard Demographics Patient Demo Date of Consultation: 12/06/16 Referring Provider: Vick Torres MD Reason for Consultation: Pneumonia PRIMARY DIAGNOSIS: pneumonia/UTI Allergies: Coded Allergies: No Known Allergies (11/28/16) History of present illness: History of present illness: Chief complaint: "I got sick." Mrs. Khan is a 46-year-old woman who presented with metastatic cervical and vulvar cancer last summer. Despite 6 cycles of carboplatin and paclitaxel, the disease has progressed. She has metastases to the lungs and bones as well as abdominal lymph nodes and has bilateral ureteral obstruction related to the tumor. She has had renal pelvic stents placed for this but, despite this, has had recurrent urinary tract infections. She was admitted here last week with confusion, fever, body aches and profound fatigue. She was diagnosed with urinary tract infection due to Enterobacter cloacae which was sensitive to most cephalosporins, Bactrim, levofloxacin, tobramycin, Zosyn. Because of an abnormal CT scan of the chest and a persisting cough, pneumonia was suspected. However, she says that her cough has not changed over the last several months. She is breathless with activities of daily living but manages to care for her 3 grandchildren whom she and her are raising. She also takes care of her home. Past medical history: Family HX Diabetes Yes CAD Yes Hypertension Yes Hyperlipidemia Yes Cancer No TB No Immunization HX Pneumonia Refuses TB Test in last year No General CAD? No Angina: No ME: No Hypertension? No Hyperlipidemia? No CHF? No DVT? No PE? No COPD? No Asthma? No Anemia? No GERD? Yes Gastric ulcers? No GI Bleed? No Hernia? No Thyroid Problems? No Hypothyroidism? No CVA? No Seizures? No Diabetes? No Renal Insuffiency? No UTI? No Stones? No BPH? No GB Disease: No Nephritic Syndrome? No Asplenia? No Hepatitis? No Sickle Cell Disease? No Arthritis? Yes Migraines? No Cataracts? No Glaucoma? No MRSA? No HIV? No TB? No Anxiety? No Depression? No Cancer? Yes Site: BONE CANCER;LUNG;CERVIX More? Yes Additional hx: SPINA BIFIDA RADIATION FOR BONE CANCER CHEMO Past Surgical HX NoPrevious Surgery?Y BACK X2 D & C C SECTION TUBAL SKIN CANCER OVARY CYST KIDNEY STENTS NEPHROSTOMY Current home meds: Reported Medications OXYCODONE HCL/ACETAMINOPHEN (Oxycodone-Acetaminophen 10-325) 10 MG PO TID PRN PAIN #90 TAB Citalopram Hydrobromide (Citalopram HBr) 10 MG PO DAILY #30 Oxybutynin Chloride (Ditropan 5MG Tab) 5 MG PO BID #60 Pregabalin (Lyrica 100Mg) 100 MG PO TID #90 OXYBUTYNIN CHLORIDE (Oxybutynin 5MG Tab) 5 MG PO BID Meloxicam (Meloxicam 15MG) 15 MG PO DAILY #30 Cyclobenzaprine Hcl 10 MG PO NIGHTLY #30 MORPHINE SULFATE SR/ER (Morphine Sulfate ER) 30 MG PO Q12 #60 Social Hx: Pt is a smoker (1-2 ppd) Patient uses alcohol never Patien't marital status is Patient's support system is fair Pt uses illicit drugs? No Standard Review of Systems General see HPI. Eyes no symptoms reported. Ears, Nose, Mouth, Throat missing teeth Respiratory see HPI. Cardiovascular No no symptoms reported Gastrointestinal/Abdominal constipated Genitourinary see HPI. Musculoskeletal back pain. Skin dryness. Neurological Yes: tingling, tremors, weakness, parasthesia. Psychiatric Yes: anxious. Exam: Lab data for last 24 hours: Microbiology 12/05 142 SPUTUM: Sputum Culture - RES 12/05 142 SPUTUM: Gram Stain - RES Admission vital signs: 1ST Vital Signs Result Date Time Pulse Ox 89 11/283 B/P 117/76 11/28 0213 Temp 99.7 11/28 0213 Pulse 112 11/28 0213 Resp 20 11/28 0213 O2 Flow Rate 2 11/28 0435 O2 Delivery ROOM AIR 11/28 0618 Exam General appearance: Chronically ill appearing, breathless woman sitting in bed, mild tremor, articulate. Eyes: anicteric, conjunctiva clear, EOM's w/normal ROM, PERRLA, exopthalmos ENT: edentulous, Mallampati I, dry Neck: normal inspection Cardiovascular: normal exam Respiratory: wheezing, cough, crackles, hyperresonance by percussion ABD: soft, no tenderness, no guarding, no organomegaly, bowel sounds present Genitourinary: stents in place Extremities: full range of motion Musculoskeletal: kyphosis present Skin: dry Neuro: alert, outsoles channel opener II-XII nml as tested, normal mood/affect, no focal deficit Plan: Problem List 1. Community acquired pneumonia 2. Urinary tract infection 3. Change in mental status 4. Hypothyroidism 5. Primary cervical cancer with metastasis to other site 6. Chronic kidney disease Plan: Mrs. Khan has diffuse bilateral nodular and groundglass pulmonary infiltrates which I do not think are changed her from prior CTs performed at the [facility]. I cannot, however, directly compare them. She does have widely metastatic disease presumed to be affecting her lungs despite aggressive therapy. She seems to have been adequately treated for the urinary tract infection and does not need further therapy for pneumonia. She is not requiring oxygen and says that her respiratory symptoms are unchanged. I'd like to follow her up as an outpatient either here or at the [facility]. She likely does have chronic obstructive pulmonary disease related to a long history of cigarette smoking and told me that she had no intention of quitting today. I do believe she'll benefit from a bronchodilator and suggested that she go home with nebulized DuoNeb to try several times a day. When I see her in the office, we can discuss other therapies. Thank you for the opportunity to participate in Mrs. Khan's care. at 1030
[2016-12-06] MEDS ORDERED: IPRATROPIUM BROM3 M2 IH (10:49)
[2016-12-06] MEDS ORDERED: AEROECLIPSE NEB1 DEV (10:50)
[2016-12-06 11:21] VITALS: BP 138/98
--- NOTE | 2016-12-12 16:10 | Discharge Summary ---
Demographics Admit date: 11/28/16 Discharge date: 12/06/16 Discharge diagnoses Problem List 1. Community acquired pneumonia 2. Urinary tract infection 3. Change in mental status 4. Hypothyroidism 5. Primary cervical cancer with metastasis to other site 6. Chronic kidney disease 7. COPD (chronic obstructive pulmonary disease) 8. Diarrhea 9. Enterococcus UTI History of present illness History of present illness 46-year-old female with metastatic cervical cancer presented to the emergency department early this morning after being weak and sleeping most of the day. Her felt like she just wasn't acting like herself and brought her to the emergency department. In the emergency department the patient was found to have urinary tract infection and chest x-ray has also shown right-sided pneumonia. Patient admits to fairly new onset of cough with intermittent episodes of shortness of breath. She assumed she just had a cold. She denies fevers or chills. Patient has bilateral urostomy tubes. Her creatinine was elevated on presentation but we do not have recent labs for comparison. Patient was admitted on Rocephin and azithromycin. Patient was admitted and placed on antibiotics. Rocephin was used to cover both her urinary tract infection as well as community-acquired pneumonia until culture results were available. Urine culture ultimately grew enterococcus cloaca which was sensitive to most antibiotics. Patient was continued on Rocephin until her antibiotic for ultimately changed to Invanz due to worsening pneumonia. At discharge she did not require any further treatment for her urinary tract infection. On the day of admission patient had abnormal chest x-ray showing RIGHT lower lobe pneumonia and lung exam with right-sided rales. Over the following 48 hours the patient's lung exam to worsen to include rhonchi and wheezing. She was started on Solu-Medrol intravenously as well as duo nebs to treat suspected chronic obstructive pulmonary disease exacerbation in addition to her pneumonia. On December 01 a chest x-ray was repeated because the patient actually seemed to be worsening. Chest x-ray showed development of bilateral infiltrates. Patient was placed on Invanz at this time and continued on azithromycin. During all of this she was able to be weaned to room air oxygen and maintained her sats in the low 90s. Patient was continued on Invanz and follow-up chest x-ray was performed on December 03 which showed possible slight improvement in her infiltrate. Patient's lung exam was still significantly abnormal with bilateral rhonchi and wheezing. On December 05 CT of the chest performed due to the persistence of her abnormal lung exam and a pulmonology consult was obtained on December 06. Dr. Doss felt like the patient's lung disease was stable and he did arrange outpatient follow-up. At this point the patient had completed an adequate course of IV antibiotics for both pneumonia and her urinary tract infection and was discharged. She will follow-up with Dr. Doss. Medications Medications: Discharge meds are as noted. Follow up Follow up in office in: 2 WEEKS with: KAITY DOSS MD at [id number]
== END 2016-12-06 12:50 | disposition home or self-care (01) | DRG 194 ==
LOC: ER 02:04 → 2ND 04:49
PROVIDERS: Emergency Medicine; Family Medicine; Internal Medicine Adolescent Medicine
DX: J18.9 Pneumonia, unspecified organism (principal); C78.00 Secondary malignant neoplasm of unspecified lung; C79.51 Secondary malignant neoplasm of bone; J44.9 Chronic obstructive pulmonary disease, unspecified; B95.2 Enterococcus as the cause of diseases classified elsewhere; N39.0 Urinary tract infection, site not specified; Z72.0 Tobacco use; C53.9 Malignant neoplasm of cervix uteri, unspecified
CPT/HCPCS: G0238; J0456; J1335; J2405

== ENCOUNTER 2016-12-13 12:18 | Emergency (ER) | payer OTHER ==
[~2016-12-13] VITALS: Ht 170.2 cm; Wt 69.9 kg
[~2016-12-13 12:18] MED LIST changes: +AEROECLIPSE NEB1 DEV; +CITALOPRAM HYDR10 MG PO; +DITROPAN 5MG TAB5 MG PO; +IPRATROPIUM BROM3 M2 IH
--- NOTE | 2016-12-13 12:34 | Emergency Room Report ---
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 STATES "I FEEL LIKE I HAVE PNEUMONIA" PT REPORTS DIARRHEA X3 DAYS Onset of symptoms date/time:12/10/16/ or onset unknown for:MEDICAL HX UNKNOWN Treatment Prior to Arrival: #20 SL R [employer] Provided by:HR OPERATIONS ADVISOR Sepsis Risk Assessment: Temp: 97.9 B/P: 91/61 MAP: 71 Pulse: 111 Resp: 22 Recent fever? N Clinical Suspician of Infection? N Mental Status: 1 - Regular (Normal Baseline) Sepsis Risk:Possible Sepsis Risk Have you (or family members/close friends) recently traveled outside the [place]? N If Yes, where/when: Have you had exposure to infectious disease within the past month? N TB? Other? Specify: Patient arrives via EMS c/o several day hx of cough with productive sputum; hx lung cancer and recently on chemo; states not feeling herself. Also states dark stools w/ diarrhea the last few days. Continues to smoke but had breathing tx earlier. Is not oxygen dependent. She has nephrostomy tubes. ALLERGIES Coded Allergies: No Known Allergies (11/28/16) Home Medications Active Scripts IPRATROPIUM/ALBUTEROL SULFATE (Iprat-Albut 0.5-3(2.5) MG/3 Ml) 3 ML IH QID #120 ML Ref 2 Prov: 12/06/16 NEBULIZER (Aeroeclipse II Nebulizer) 1 EACH NA UD #1 DEV Prov: 12/06/16 Reported Medications OXYCODONE HCL/ACETAMINOPHEN (Oxycodone-Acetaminophen 10-325) 10 MG PO TID PRN PAIN #90 TAB Citalopram Hydrobromide (Citalopram HBr) 10 MG PO DAILY #30 Pregabalin (Lyrica 100Mg) 100 MG PO TID #90 Cyclobenzaprine Hcl 10 MG PO NIGHTLY #30 MORPHINE SULFATE SR/ER (Morphine Sulfate ER) 30 MG PO Q12 #60 Discontinued Reported Medications OXYBUTYNIN CHLORIDE (Oxybutynin 5MG Tab) 5 MG PO BID History Medical History General CAD? No Angina: No [place]: No Hypertension? No Hyperlipidemia? No CHF? No DVT? No PE? No COPD? No Asthma? No Anemia? No GERD? Yes Gastric ulcers? No GI Bleed? No Hernia? No Thyroid Problems? No Hypothyroidism? No CVA? No Seizures? No Diabetes? No Renal Insuffiency? No End Stage Renal Disease? No UTI? No Stones? No BPH? No GB Disease: No Nephritic Syndrome? No Asplenia? No Hepatitis? No Sickle Cell Disease? No Arthritis? Yes Migraines? No Cataracts? No Glaucoma? No MRSA? No HIV? No TB? No Anxiety? No Depression? No Cancer? Yes Site: BONE CANCER;LUNG;CERVIX More? 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 Hx LMP N/A Family History Family Hx Diabetes Yes CAD Yes Hypertension Yes Hyperlipidemia Yes Cancer No TB No Social History Smoking Hx Smoker: Current Every Day Smoker Tobacco: Yes Type Cigarettes Packs/day 1 1/2 - 2 Packs Alcohol Alcohol: No Review of Systems All Other Systems Reviewed and Negative Respiratory see HPI Gastrointestinal see HPI Psychiatric/Neurological see HPI Physical Exam Vital Signs Vital Signs Date Time Temp Pulse Resp B/P Pulse O2 O2 Flow FiO2 Ox Delivery Rate 12/13 1339 116 22 105/51 92 2 12/13 1241 88 12/13 1218 97.9 111 22 91/61 88 General Appearance chronically ill appearing thin; alert and sitting up, communicative with good eye contact and clear speech, actively coughing. Eye Exam - bilateral eye normal exam, bilateral eye PERRL, bilateral eye EOMI Neck normal inspection, non-tender, supple, full range of motion Respiratory Status Yes: trachea midline, chest symmetrical, non tender chest, productive cough. No : respiratory distress, tender on palpation, use of accessory muscles, pain on inspiration, pain on expiration, non productive cough. Lung Sounds left: rhonchi. Cardiovascular normal exam, regular rate/rhythm, no peripheral edema, no gallop, no JVD, no murmur, no rub, normal peripheral pulses Gastrointestinal normal bowel sounds, normal exam, soft, no organomegaly, no pulsatile mass, no guarding, no rebound Extremities normal range of motion Neurologic alert, no motor/sensory deficits, no tremor, completely oriented, ambulatory, nonfocal exam, no lethargy or somnolence noted. Glascow Coma Scale Glascow Coma Scale Response Value EYE response: 4 Spontaneously 4 MOTOR response: 6 OBEYS 6 VERBAL response: 5 Oriented & Converses 5 Total 15 Skin intact, no rash cons.w/shingles, pallor Medical Decision Making LABS/Meds/Orders Pt receiving controlled substance in ED? No Results/Orders Laboratory Tests 12/13/16 1300: Lactic Acid 1.9 12/13/16 1300: Sodium 131 L, Potassium 5.6 H, Chloride 96 L, Carbon Dioxide 24, BUN 58 H, Creatinine 4.8 H, Estimated Creat Clear 16 L, Estimated GFR (MDRD) 10 *L, Glucose 123 H, Calcium 7.9 L, Total Bilirubin 0.6, AST 65 H, ALT 35, Alkaline Phosphatase 127 H, Total Protein 7.2, Albumin 2.4 L, Globulin 4.8 H, Albumin/ Globulin Ratio 0.5 L, WBC 9.5, RBC 3.40 L, Hgb 10.3 L, Hct 32.1 L, MCV 94.4, RDW 17.2, Plt Count 170, MPV 6.8 L, Gran % 87.3 H, Gran # 8.3 H, Total Counted 100, Lymphocytes % 7.5 L, Monocytes % 4.6, Eosinophils % 0.4, Basophils % 0.2, Neutrophils 76, Band Neutrophils 4, Lymphocytes (Manual) 16, Lymphocytes # 0.7, Monocytes (Manual) 3, Monocytes # 0.4, Eosinophils # 0.0, Basophils # 0.0 , Metamyelocytes 1, Platelet Estimate NORMAL, PUBS MCHC 32.3, MCH 30.4 Current Medication Orders Sig/Faith Start time Last Medication Dose Route Stop Time Status Admin Sodium Chloride 1,000 ML .Q4H 12/13 1400 AC IV 12/13 1759 Sodium Chloride 10 ML PRN PRN 12/13 1400 AC IV 12/14 1351 Sodium Chloride 1,000 ML .STK-MED ONE 12/13 1243 DC IV Sodium Chloride 10 ML PRN PRN 12/13 1230 AC IV 12/14 1225 Sodium Chloride 1,000 ML .[id number] 12/13 1230 AC 12/13 IV 1243 Sodium Chloride 10 ML PRN PRN 12/13 1230 AC IV 12/14 1226 Orders Procedure Date/time Status OXYGEN PER NURSE 12/13 1340 Active Decision to admit 12/13 1340 Active URINALYSIS/COMPLETE 12/13 1330 Active ELECTROCARDIOGRAM REQUEST 12/13 1323 Active DIFFERENTIAL-WBC 12/13 1300 Complete CLOSTRIDIUM DIFFICLE TOXIN A,B 12/13 1238 Active IV SALINE LOCK 12/13 1227 Active CULTURE, BLOOD 12/13 1227 Active LACTIC ACID 12/13 1227 Complete DIARRHEA PANEL, PCR 12/13 1227 Active CBC WITH AUTO DIFF 12/13 1227 Complete CHEM 12 PROFILE 12/13 1227 Complete 12 LEAD EKG-DARYL (INITIAL) 12/13 UNK Active CM/EKG CM/EKG EKG rate, rhythm, no evid. of ischemic chgs, no ectopy, normal QRS, normal ME , normal EKG (STACH 115;) XRAY/CT/US XRAY/CT/US 1 XR interpretation by reviewed by me, discussed w/radiologist Xray Results lytic lesions seen previously, B pneumonia seen recently, overall improving Consult MD Physician Consult 1 Consult/PCP Dr. Delgadillo accepting for transfer; bed available in a few hours Time Called 1341 Reason Pt. Condition Comments Dr. Rissa Delgadillo at [facility] paged regarding condition, possible transfer, per d/w family at bedside. Physician Consult 3 Time Called [address] Pt[address] Condition Comments Dr[address] Torres updated about family coming to bedside and requesting definitive transfer to . Progress ED Progress Notes Date 12/13/16 Time 1236 Comment Patient discharged from this facility 12/12/16 for pneumonia treated with ceftriaxone and zithromax initially, then Invanz. Patient of Dr. Oconnor. Departure Departure Time of Disposition 1342 Disposition Still a Patient Clinical Impression Primary Impression: Dehydration Secondary Impressions: Diarrhea Qualifiers: Diarrhea type: unspecified type Qualified Code: R19.7 - Diarrhea, unspecified Metastatic cancer Uremia Condition STABLE Referrals Misbah PORTILLO,A.C. (PCP/Family) ED Critical Care Critical Care Yes Time spent < 30 min Vital system(s) involved: Circulatory Failure (hypotension uremia) I was present at bedside for Coordinating pt's care, Interpreting EKGs/Strips , During my initial exam, Reviewing lab results, Reviewing old records, Discussing pt condition, For re-examinations, Examining radiographs at 1414
[2016-12-13 13:17] LABS: LYMPH # 0.7 K/mm3 (0.7-4.5); LYMPH % 7.5 % (10-50.0)
[2016-12-13 13:19] LABS: HEMOGLOBIN 10.3 g/dL (12.2-16.2)
--- NOTE | 2016-12-13 13:25 | RADIOLOGY REPORT PS360 ---
CHEST-PORTABLE HISTORY: cough w/ sputum; lung ca ORDERING PHYSICIAN: Esther Nieto MD PATIENT AGE: 46 years COMPARISON: 12/03/2016 FINDINGS: The cardiomediastinal silhouette and pulmonary vascularity are within normal limits. There is been some improvement in the diffuse bilateral pneumonia. There remains some residual in the right lower lobe.. Lytic lesion of the right humerus once again noted. There is an old fracture of the left third rib.. IMPRESSION: 1. Persistent but improving pneumonia 2. No change lytic lesion right humerus
[2016-12-13 13:57] LABS: NEUTROPHILS 76 % (42-76)
[2016-12-13 14:26] VITALS: BP 99/69
--- OUTSIDE RECORDS SUMMARY | 2016-12-20 02:53 | External Medical Summary Rpt ---
Demographics Preferred Language Chinese Marital Status Unknown Uatsdin Affiliation Unknown Race Unknown Ethnic Group Unknown Author Author , Organization [employer] Address Unknown Phone Unavailable Purpose Continuity of Care Document - through 2016 Immunization No patient found.
--- OUTSIDE RECORDS SUMMARY | 2016-12-20 02:53 | External Medical Summary Rpt ---
Author Author [employer], [employer] Organization [employer] Address Unknown Phone Unavailable Results CBC W Auto Differential panel in Blood Observa Value Referen Units Interpr Notes Date tion ce etation Range Basophils 0 - 0.2 K/MM3 Normal No December 13 inform2016 1:00 [#/volume on in PM ] in source Blood by data Automated count Basophils 0.1 - 2.0 % Normal No December 13 informati 2016 1:00 leukocyte on in PM s in source Blood by data Automated count Eosinophi 0.0 - 0.4 K/mm3 Normal No December 13 ls informati 2016 1:00 [#/volume on in PM ] in source Blood by data Automated count Eosinophi 0.1 - % Normal No December 13 ls/100 12.0 informati 2016 1:00 leukocyte on in PM s in source Blood by data Automated count Granulocy 1.8 - 7.8 K/mm3 High No December 13 seng ati 2016 1:00 [#/volume on in PM ] in source Blood by data Automated count Granulocy 37.0 - % High No December 13 seng/100 80.0 informati 2016 1:00 leukocyte on in PM s in source Blood by data Automated count Hematocri 37.0 - % Low No December 13 t [Volume 47.0 informati 2016 1:00 on in PM Fraction] source of Blood data Hemoglobi 12.2 - g/dL Low No December 13 n 16.2 informati 2016 1:00 [Mass/vol on in PM ume] in source Blood data Lymphocyt 0.7 - 4.5 K/mm3 Normal No December 13 es informati 2016 1:00 [#/volume on in PM ] in source Unspecifi data ed specimen by Automated count Lymphocyt 10 - 50.0 % Low No December 13 es informati 2016 1:00 [#/volume on in PM ] in source Unspecifi data ed specimen by Automated count Erythrocy 27 - 31.2 pg Normal No December 13 te mean informati 2016 1:00 corpuscul on in PM ar source hemoglobi data n [Entitic mass] Erythrocy 31.8 - g/dl Normal No December 13 te mean 35.4 inform2016 1:00 corpuscul on in PM ar source hemoglobi data n concentra tion [Mass/vol ume] by Automated count Erythrocy 82.2 - fl Normal No December 13 te mean 97.8 informati 2016 1:00 corpuscul on in PM ar volume source [Entitic data volume] by Automated count Monocytes 0.1 - 1.0 K/mm3 Normal No December 13 inform2016 1:00 [#/volume on in PM ] in source Blood by data Automated count Monocytes 1.7 - 9.3 % Normal No December 13 informati 2016 1:00 leukocyte on in PM s in source Blood by data Automated count Platelet 7.4 - fl Low No December 13 mean 10.4 inform2016 1:00 volume on in PM [Entitic source volume] data in Blood by Automated count Platelets 142 - 424 K/mm3 No December 13 informati informati 2016 1:00 [#/volume on in on in PM ] in source source Blood data data Erythrocy 4.2 - 5.4 M/mm3 Low No December 13 seng informati 2016 1:00 [#/volume on in PM ] in source Amniotic data fluid Erythrocy 11.5 - % Normal No December 13 te 17.5 informati 2016 1:00 distribut on in PM ion width source [Entitic data volume] by Automated count Leukocyte 4.8 - K/MM3 Normal No December 13 s 10.8 informati 2016 1:00 [#/volume on in PM ] in source Blood data Differential panel, method unspecified - Observa Value Referen Units Interpr Notes Date tion ce etation Range Neutrophi 0 - 8 % Normal No December 13 ls.band informati 2016 1:00 form/100 on in PM leukocyte source s in data Blood by Automated count LYMPH 16 10 - 50 % Normal No December 132016 tion in 1:00 PM source data Metamyelo 0 - 1 % Normal No December 13 cytes/100 informati 2016 1:00 on in PM leukocyte source s in data Blood by Manual count Monocytes 2 - 9 % Normal No December 13 informati 2016 1:00 leukocyte on in PM s in source Blood by data Automated count Platele NORMAL No No No No December 13 ts informa informa informa informa 2016 [Presen tion in tion in tion in tion in 1:00 PM ce] in source source source source Blood data data data data by Light microsc opy Neutrophi 42 - 76 % Normal No December 13 ls informati 2016 1:00 [#/volume on in PM ] in source Blood by data Automated count Cells No #CELLS No No December 13 Counted informati informati informati 2016 1:00 Total [#] on in on in on in PM in Blood source source source data data data Lactate [Moles/volume] in Blood Observa Value Referen Units Interpr Notes Date tion ce etation Range Lactate 0.4 - 2.0 mmol/L Normal No December 13 [Moles/vo informati 2016 1:00 lume] in on in PM Blood source data Comprehensive metabolic 2000 panel in Serum or Plasma Observa Value Referen Units Interpr Notes Date ti ce etation Range Albumin/G 1.1 - 1.8 No Low No December 13 lobulin informati informati 2016 1:00 [Mass on in on in PM ratio] in source source Serum or data data Plasma Albumin 3.4 - 5.0 gm/dL Low No December 13 [Mass/vol informati 2016 1:00 ume] in on in PM Serum or source Plasma data Alkaline 46 - 116 U/L High No December 13 phosphata informati 2016 1:00 se on in PM [Enzymati source c data activity/ volume] in Serum or Plasma Bilirubin 0.2 - 1.0 mg/dL Normal No December 13 .total informati 2016 1:00 [Mass/vol on in PM ume] in source Serum or data Plasma Urea 7 - 18 mg/dL High No December 13 nitrogen informati 2016 1:00 [Mass/vol on in PM ume] in source Serum or data Plasma Calcium 8.5 - mg/dL Low No December 13 [Mass/vol 10.1 informati 2016 1:00 ume] in on in PM Serum or source Plasma data Chloride 98 - 107 mmoL/L Low No December 13 [Moles/vo informati 2017 1:00 lume] in on in PM Serum or source Plasma data Carbon 21.0 - mmoL/L Normal No December 13 dioxide, 32.0 informati 2016 1:00 total on in PM [Moles/vo source lume] in data Serum or Plasma Creatinin 0.55 - mg/dL High No December 13 e 1.02 informati 2016 1:00 [Mass/vol on in PM ume] in source Serum or data Plasma Creatinin 50 - 200 ML/MIN Low No December 13 e renal informati 2016 1:00 clearance on in PM source predicted data by Cockcroft -Gault formula Estimated 59- ML/MIN Low alert REFERENCE December 13 RANGE: 2017 1:00 glomerula >60 PM r ML/MIN/1. filtratio 73 SQUARE n rate METERSIf (GF this patient is -A merican, then multiply theresult by 1.210. Globulin 1.3 - 3.2 gm/dL High No December 13 [Mass/vol informati 2016 1:00 ume] in on in PM Serum source data Glucose 74 - 106 mg/dL High No December 13 [Mass/vol informati 2016 1:00 ume] in on in PM Serum or source Plasma data Potassium 3.5 - 5.1 mmoL/L High No December 132016 1:00 [Moles/vo on in PM lume] in source Serum or data Plasma Sodium 136 - 145 mmoL/L Low No December 13 [Moles/vo informati 2016 1:00 lume] in on in PM Serum or source Plasma data Aspartate 15 - 37 U/L High No December 13 inform2016 1:00 aminotran on in PM sferase source [Enzymati data c activity/ volume] in Serum or Plasma Alanine 12 - 78 U/L Normal No December 13 aminotran inform2016 1:00 sferase on in PM [Enzymati source c data activity/ volume] in Serum or Plasma Protein 6.4 - 8.2 gm/dL Normal No December 13 [Mass/vol informati 2016 1:00 ume] in on in PM Serum or source Plasma data Comprehensive metabolic 2000 panel in Serum or Plasma Observa Value Referen Units Interpr Notes Date tion ce etation Range Albumin/G 1.1 - 1.8 No Low No December 05 lobulin informati informati 2016 6:30 [Mass on in on in AM ratio] in source source Serum or data data Plasma Albumin 3.4 - 5.0 gm/dL Low No December 05 [Mass/vol informati 2016 6:30 ume] in on in AM Serum or source Plasma data Alkaline 46 - 116 U/L Normal No December 05 phosphata informati 2016 6:30 se on in AM [Enzymati source c data activity/ volume] in Serum or Plasma Bilirubin 0.2 - 1.0 mg/dL Normal No December 05 .total informati 2016 6:30 [Mass/vol on in AM ume] in source Serum or data Plasma Urea 7 - 18 mg/dL High No December 05 nitrogen informati 2016 6:30 [Mass/vol on in AM ume] in source Serum or data Plasma Calcium 8.5 - mg/dL Normal No December 05 [Mass/vol 10.1 informati 2016 6:30 ume] in on in AM Serum or source Plasma data Chloride 98 - 107 mmoL/L Normal No December 05 [Moles/vo informati 2016 6:30 lume] in on in AM Serum or source Plasma data Carbon 21.0 - mmoL/L Normal No December 05 dioxide, 32.0 informati 2016 6:30 total on in AM [Moles/vo source lume] in data Serum or Plasma Creatinin 0.55 - mg/dL High No December 05 e 1.02 informati 2016 6:30 [Mass/vol on in AM ume] in source Serum or data Plasma Creatinin 50 - 200 ML/MIN Low No December 05 e renal informati 2016 6:30 clearance on in AM source predicted data by Cockcroft -Gault formula Estimated 59- ML/MIN Low REFERENCE December 05 RANGE: 2017 6:30 glomerula >60 AM r ML/MIN/1. filtratio 73 SQUARE n rate METERSIf (GF this patient is -A merican, then multiply theresult by 1.210. Globulin 1.3 - 3.2 gm/dL High No December 05 [Mass/vol informati 2017 6:30 ume] in on in AM Serum source data Glucose 74 - 106 mg/dL High No December 05 [Mass/vol informati 2016 6:30 ume] in on in AM Serum or source Plasma data Potassium 3.5 - 5.1 mmoL/L Normal No December 05 informati 2016 6:30 [Moles/vo on in AM lume] in source Serum or data Plasma Sodium 136 - 145 mmoL/L Normal No December 05 [Moles/vo informati 2017 6:30 lume] in on in AM Serum or source Plasma data Aspartate 15 - 37 U/L High No December 05 inform2016 6:30 aminotran on in AM sferase source [Enzymati data c activity/ volume] in Serum or Plasma Alanine 12 - 78 U/L High No December 05 aminotran inform2016 6:30 sferase on in AM [Enzymati source c data activity/ volume] in Serum or Plasma Protein 6.4 - 8.2 gm/dL Normal No December 05 [Mass/vol inform2016 6:30 ume] in on in AM Serum or source Plasma data CBC W Auto Differential panel in Blood Observa Value Referen Units Interpr Notes Date tion ce etation Range Basophils 0 - 0.2 K/MM3 Normal No December 05 inform2016 6:30 [#/volume on in AM ] in source Blood by data Automated count Basophils 0.1 - 2.0 % Normal No December 05 inform2016 6:30 leukocyte on in AM s in source Blood by data Automated count Eosinophi 0.0 - 0.4 K/mm3 Normal No December 05 ls ati 2016 6:30 [#/volume on in AM ] in source Blood by data Automated count Eosinophi 0.1 - % Normal No December 05 ls/100 12.0 informati 2016 6:30 leukocyte on in AM s in source Blood by data Automated count Granulocy 1.8 - 7.8 K/mm3 Normal No December 05 seng ati 2016 6:30 [#/volume on in AM ] in source Blood by data Automated count Granulocy 37.0 - % High No December 05 seng/100 80.0 informati 2016 6:30 leukocyte on in AM s in source Blood by data Automated count Hematocri 37.0 - % Low No December 05 t [Volume 47.0 informati 2016 6:30 on in AM Fraction] source of Blood data Hemoglobi 12.2 - g/dL Low No December 05 n 16.2 informati 2016 6:30 [Mass/vol on in AM ume] in source Blood data Lymphocyt 0.7 - 4.5 K/mm3 Low No December 05 es informati 2016 6:30 [#/volume on in AM ] in source Unspecifi data ed specimen by Automated count Lymphocyt 10 - 50.0 % Normal No December 05 es informati 2016 6:30 [#/volume on in AM ] in source Unspecifi data ed specimen by Automated count Erythrocy 27 - 31.2 pg Normal No December 05 te mean informati 2016 6:30 corpuscul on in AM ar source hemoglobi data n [Entitic mass] Erythrocy 31.8 - g/dl Low No December 05 te mean 35.4 informati 2016 6:30 corpuscul on in AM ar source hemoglobi data n concentra tion [Mass/vol ume] by Automated count Erythrocy 82.2 - fl Normal No December 05 te mean 97.8 informati 2016 6:30 corpuscul on in AM ar volume source [Entitic data volume] by Automated count Monocytes 0.1 - 1.0 K/mm3 Normal No December 05 informati 2016 6:30 [#/volume on in AM ] in source Blood by data Automated count Monocytes 1.7 - 9.3 % Normal No December 05 /100 informati 2016 6:30 leukocyte on in AM s in source Blood by data Automated count Platelet 7.4 - fl Low No December 05 mean 10.4 informati 2016 6:30 volume on in AM [Entitic source volume] data in Blood by Automated count Platelets 142 - 424 K/mm3 Low No December 05 informati 2017 6:30 [#/volume on in AM ] in source Blood data Erythrocy 4.2 - 5.4 M/mm3 Low No December 05 seng informati 2017 6:30 [#/volume on in AM ] in source Amniotic data fluid Erythrocy 11.5 - % Normal No December 05 te 17.5 informati 2016 6:30 distribut on in AM ion width source [Entitic data volume] by Automated count Leukocyte 4.8 - K/MM3 No December 05 s 10.8 informati informati 2017 6:30 [#/volume on in on in AM ] in source source Blood data data
--- OUTSIDE RECORDS SUMMARY | 2016-12-20 02:53 | External Medical Summary Rpt ---
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 12-18-2016 related pain (acute) (chronic) I10 Essential 12-18-2016 (primary) hypertensio n I95.9 Hypotension 12-18-2016 , unspecified R00.0 Tachycardia 12-18-2016 , unspecified R11.10 Vomiting, 12-18-2016 unspecified R13.10 Dysphagia, 12-18-2016 unspecified R19.7 Diarrhea, 12-18-2016 unspecified R53.83 Other 12-18-2016 fatigue Z51.5 Encounter 12-18-2016 for palliative care Z66 Do not 12-18-2016 resuscitate A41.9 Sepsis, 12-15-2016 unspecified organism B37.49 Other 12-15-2016 urogenital candidiasis 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 E83.41 Hypermagnes 12-15-2016 emia E87.1 Hypo-osmola 12-15-2016 lity and hyponatremi a E87.2 Acidosis 12-15-2016 E87.5 Hyperkalemi 12-15-2016 a G93.40 Encephalopa 12-15-2016 thy, unspecified N17.9 Acute 12-15-2016 kidney failure, unspecified N18.9 Chronic 12-15-2016 kidney disease, unspecified N39.0 Urinary 12-15-2016 tract infection, site not specified R41.0 Disorientat 12-15-2016 ion, unspecified R65.21 Severe 12-15-2016 sepsis with septic shock Z68.24 Body mass 12-15-2016 index (BMI) 24.0-24.9, adult 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 Z85.44 Personal 12-15-2016 history of malignant neoplasm of other female genital organs Z86.19 Personal 12-15-2016 history of other infectious and parasitic diseases Z87.01 Personal 12-15-2016 history of pneumonia (recurrent) Z87.440 Personal 12-15-2016 history of urinary (tract) infections Z92.21 Personal 12-15-2016 history of antineoplas tic chemotherap y Z93.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 Z98.51 Tubal 12-15-2016 ligation status C55 MALIGNANT NEOPLASM OF UTERUS, PART 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 C79.9 SECONDARY MALIGNANT NEOPLASM OF UNSPECIFIED SITE E86.0 DEHYDRATION N19 UNSPECIFIED KIDNEY FAILURE N28.9 DISORDER OF KIDNEY AND URETER, UNSPECIFIED N71.9 INFLAMMATOR Y DISEASE OF UTERUS, UNSPECIFIED R07.89 OTHER CHEST PAIN R41.82 ALTERED MENTAL STATUS, UNSPECIFIED S91.339A PUNCTURE WOUND WITHOUT FOREIGN BODY, UNSP FOOT, INIT ENCNTR T83.092A [facility] COMPL OF NEPHROSTOMY CATHETER, INITIAL ENCOUNTER Results Labs Lab Lab Date Result Refere Interp Status Commen Order Detail nces retati t Range on Lactate Bld-sCnc (12-13-2016 19:15) Lactate 0.6 complet 017 mmol/L ed Bld-sCn 19:15 c Ca-I SerPl ISE-sCnc (12-13-2016 16:39) Ca-I 3.9 4.6-5.1 complet SerPl 017 mg/dL ed ISE-sCn 16:39 c Magnesium SerPl-mCnc (12-13-2016 16:39) Magnesi 3.2 1.9-2.4 complet um 017 mg/dL ed SerPl-m 16:39 Cnc Phosphate SerPl-mCnc (12-13-2016 16:39) Phospha 6.2 2.5-4.5 complet te 017 mg/dL ed SerPl-m 16:39 Cnc
--- OUTSIDE RECORDS SUMMARY | 2016-12-20 02:53 | External Medical Summary Rpt ---
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
--- OUTSIDE RECORDS SUMMARY | 2016-12-20 02:53 | External Medical Summary Rpt ---
Demographics Preferred Language Occitan Marital Status Unknown Church Affiliation Unknown Race Unknown Ethnic Group Unknown Author Author , Organization [employer] Address Unknown Phone Unavailable Purpose Continuity of Care Document - through 2016 Immunization No patient found.
== END 2016-12-13 14:26 | disposition short-term general hospital (02) ==
LOC: ER 12:18
PROVIDERS: Emergency Medicine
DX: E86.0 Dehydration (principal); R19.7 Diarrhea, unspecified; C79.51 Secondary malignant neoplasm of bone; Z72.0 Tobacco use; K21.9 Gastro-esophageal reflux disease without esophagitis